=== PATIENT | male | born 1960 | race Caucasian/White ===

== ENCOUNTER 2018-02-21 07:05 | Day surgery (SDC) | payer BC ==
[~2018-02-21] VITALS: Ht 185.4 cm; Wt 111.1 kg
--- NOTE | ~2018-02-21 | OR ---
[facility] [address], [place] [address] [place] DATE OF OPERATION: 02/21/2018 SURGEON: Benjamin Arias MD PREOPERATIVE DIAGNOSIS: Forehead osteoma. POSTOPERATIVE DIAGNOSIS: Forehead osteoma. PROCEDURE: Excision of forehead osteoma. ANESTHESIA: General LMA; LOCKER ROOM ATTENDANT, Monae Frye. PREOPERATIVE HISTORY: Mr. Villa is a 58-year-old man with a hard bony nodule midline forehead. This has been troublesome for long long time for him uncomfortable bumped into it, attracts attention. He was taken to the operating for the above-mentioned procedures. OPERATIVE PROCEDURE AND FINDINGS: After informed consent, the patient was taken to the operating room, placed in supine position where general LMA anesthesia was induced. The patient and procedure were verified. The forehead was sterilely prepped and draped. The osteoma in question measured about 2 cm in greatest diameter, was in the midline, forehead, midportion several centimeters inferior to the hairline. It protruded about a centimeter from the normal contour of the skull. After sterile prep and drape, incision was drawn with a marking pencil over the lesion in transverse direction. A 1% lidocaine with epi was injected. Incision was made. The dissection down to bone through periosteum, sharp and blunt dissection. The osteoma was identified, exposed. Self retaining retractors were placed. This was actually a very broad-based lesion. The large cutting bur was used to remove this lesion, smoothed down to the normal contour of the skull. The rough edges were smoothed. The wound was copiously lavaged with saline. Hemostasis was obtained with needle point cautery. The wound was then closed with 4-0 interrupted Vicryl in the periosteum and subcu and 5-0 running nylon on the skin. The skin was cleansed. Neosporin was applied. Fluffs type Kerlix pressure dressing was then applied. The patient was awakened, extubated, transported to recovery room in good condition. COMPLICATIONS: PATIENT NAME: KRYSTIAN VILLA OPERATIVE REPORT DATE OF : 64 REPORT #: [id number] PHYSICIAN: BENJAMIN ARIAS MD PCP: NO PRIMARY CARE PHYSICIAN REPORT IS CONFIDENTIAL AND NOT TO BE RELEASED WITHOUT AUTHORIZATION [address] [address] [place] No complications. BLOOD LOSS: Minimal. SPECIMENS: No specimens. DRAINS: No drains. Benjamin Arias MD GC/MODL /[id number] Copies: ~ PATIENT NAME: KRYSTIAN VILLA OPERATIVE REPORT DATE OF : 64 REPORT #: [id number] PHYSICIAN: BENJAMIN ARIAS MD PCP: NO PRIMARY CARE PHYSICIAN REPORT IS CONFIDENTIAL AND NOT TO BE RELEASED WITHOUT AUTHORIZATION
[~2018-02-21 07:05] MED LIST: ALLOPURINOL300 MG PO; CELEBREX200 MG PO; LISINOPRIL10 MG PO; NORCO 5-325 TA1 EACH PO
--- NOTE | 2018-02-21 09:41 | NUR ---
02/21/18 0941 Keyanna Camacho 0930 PT ARRIVED TO PACU ON 10L VIA MASK, RESP EVEN AND UNLABORED. PT REACTIVE TO TACTILE STIMULI. PT BACK TO SLEEP 0934 O2 DECREASED TO 6L, PT DENIES NAUSEA AND PAIN, PT REORIENTED TO PACU. 0936 MD AT BEDSIDE. O2 LIBAN REMOVED. O2 SAT 100%.
--- NOTE | 2018-02-21 09:57 | NUR ---
ICED WATER AND APPLESAUCE GIVEN. CALL LIGHT W/IN REACH.
--- NOTE | 2018-02-21 11:01 | NUR ---
MET WITH PT-HE ALERT, ORIENTED AND SUPPORTED BY HIS SANTIAGO AND Allyn.SON. THEY BOTH WERE SOMEWHAT ANXIOUS BECAUSE OF PT'S FAMILY MEDICAL HISTORY. WE THEN OUTLINED THE DAY, PT REQUESTED PRAYER. WILL FOLLOW NEEDED
--- NOTE | 2018-02-21 11:02 | NUR ---
PATIENT UP TO BR W/RN STANDBY. PT AMBULATES WELL AND DENIES DIZZINESS. PATIENT REQ DC HOME. DC INSTRUCTIONS GIVEN IN PRESENCE OF SPOUSE AND BOTH VERBALIZE UNDERSTANDING.
== END 2018-02-21 11:10 | disposition home or self-care (01) ==
LOC: DS 07:05
PROVIDERS: Otolaryngology
PROC: 0NB10ZZ Excision of Frontal Bone, Open Approach (ICD-10-PCS; principal; 2018-02-21 08:00)
DX: D16.4 Benign neoplasm of bones of skull and face (principal); I10 Essential (primary) hypertension; Z79.899 Other long term (current) drug therapy; Z87.891 Personal history of nicotine dependence
CPT/HCPCS: 00300; J1100; J2250; J2405; J2704; J3010; J7120